=== PATIENT | female | born 1985 | race Caucasian/White ===

== ENCOUNTER 2017-02-22 11:01 | Emergency (ER) | payer OTHER ==
[2017-02-22] MEDS ORDERED: CYCLOBENZAPRINE 10 MG TAB PO ONE (12:23)
--- NOTE | 2017-02-22 13:05 | EDPHY ---
H & P Smoking Status: Never smoked Time Seen by Provider: 02/22/17 13:01 HPI/ROS: HPI: This is a pleasant 32-year-old female who presents with Chief Complaint: Not feeling right Location: Head Quality: Not feeling right Duration: 1-5 hours Signs and Symptoms: Positive head injury, no loss consciousness, positive mild neck pain, no nausea, no vomiting, no dizziness, no abdominal pain, vision loss Timing: Gradual onset Severity: Mild to moderate Context: This patient has a history of several concussions in the past. She presents today after she sustained a head injury while playing [employer] last night around 8 PM. Patient reports that she tripped over another player and 200 lb player landed directly on her head hitting her head to the floor. No loss of consciousness. Patient was able to get up on her own 1 over to the box and rested for 30-45 minutes. Did not have any mental status changes. Was able to drive herself home to her mother's house. Ate dinner, went to bed and slept without difficulty. Woke up this morning feeling fine and then on a drive from [employer] to [employer] she started to "not feel right." Last menstrual period within the last week. Modifying Factors: Did not try any [id number] medications Comment: ROS: Eyes: No blurred vision Respiratory: No shortness of breath, no cough Cardiovascular: No chest pain Gastrointestinal: No nausea, no vomiting no diarrhea Genitourinary: No dysuria Extremities: No myalgias Neurologic: No weakness, no numbness Skin: No rashes Hematologic: No bruising, no bleeding MEDICAL/SURGICAL HISTORY: Concussions in the past. Denies any surgical history. (Cindy Moreland) Social History: Employed. Physically active. (Cindy Moreland) Constitutional: Initial Vital Signs Temperature (C) 36.5 C 02/22/17 11:09 Heart Rate 85 02/22/17 11:09 Respiratory Rate 16 02/22/17 11:09 Blood Pressure 103/76 02/22/17 11:09 O2 Sat (%) 100 02/22/17 11:09 O2 Delivery Mode Room Air Allergies/Adverse Reactions: prednisolone Allergy (Verified 02/22/17 11:08) Home Medications: Medication Instructions Recorded Levothyroxine 02/22/17 Medical Decision Making - Diagnostics Imaging Results: Imaging Impressions Cervical Spine CT 02/22/17 12:23 Impression: No acute traumatic sequelae. I telephoned results to Cindy Moreland PA-C at [address] 02/22/17 12:23 Impression: Normal. ED Course/Re-evaluation: Head CT scan, cervical CT scan, oral medication given No history of blood thinners. Due to history of concussions in the past and delayed onset of symptoms; decision was made to scan her head Head CT scan shows no acute intracranial process CT cervical scan does not show any degenerative changes or acute fracture Advised supportive care. Concussion precautions advised. (Cindy Moreland) The patient was evaluated and managed by the physician office assistant receptionist. I have reviewed this chart and I agree with the findings and plan of care as documented , as indicated by my signature. I am the secondary supervising physician. ( Shannan Ruvalcaba) Differential Diagnosis: Head injury including but not limited to concussion, skull fracture, intraparenchymal contusion, subarachnoid, subdural and epidural hematoma. (Cindy Moreland) - Data Points Medications Given: Discontinued Medications Cyclobenzaprine HCl (Flexeril) 10 mg PO EDNOW ONE Stop: 02/22/17 12:24 Last Admin: 02/22/17 12:33 Dose: 10 mg Departure - Departure Disposition: Home, Routine, Self-Care Clinical Impression: Mild concussion Qualifiers: Encounter type: initial encounter Loss of consciousness presence/duration: without LOC Qualified Code(s): S06.0X0A - Concussion without loss of consciousness, initial encounter Condition: Good Instructions: Concussion (ED) Referrals: DARRELL RAMÍREZ [Other] - 5-7 days, if not improved
[2017-02-22 13:56] VITALS: RESP 20; O2SAT 99
[2017-02-22 14:40] VITALS: BP 101/69; PULSE 82; TEMP 98.6
== END 2017-02-22 14:39 | disposition home or self-care (01) ==
DX: S06.0X0A Concussion without loss of consciousness, initial encounter (principal); W51.XXXA Accidental striking against or bumped into by another person, initial encounter; Y92.89 Other specified places as the place of occurrence of the external cause; Y99.8 Other external cause status; Y93.89 Activity, other specified